=== PATIENT | female | born 1960 | race Asian ===

== ENCOUNTER 2017-01-22 08:32 | Outpatient (CLI) | payer BC | END 2017-01-22 19:36 | disposition home or self-care (01) | LOC: SMA 08:32 | PROVIDERS: ATTEND Obstetrics & Gynecology | DX: Z12.31 Encounter for screening mammogram for malignant neoplasm of breast (principal) | CPT/HCPCS: G0202 ==

== ENCOUNTER 2018-09-29 08:29 | Outpatient (CLI) | payer BC | END 2018-09-29 20:23 | disposition home or self-care (01) | LOC: SMA 08:29 | PROVIDERS: ATTEND Internal Medicine | DX: Z12.31 Encounter for screening mammogram for malignant neoplasm of breast (principal) | CPT/HCPCS: 77067 ==